=== PATIENT | female | born 1940 | race Caucasian/White ===

== ENCOUNTER → 2020-11-13 | Outpatient (CLI) | payer MEDICARE, OTHER | END | disposition home or self-care (01) | LOC: LAB 15:10 → LAB SHORT 15:10 | DX: L08.9 Local infection of the skin and subcutaneous tissue, unspecified (principal) | CPT/HCPCS: 88305 ==

== ENCOUNTER 2022-12-23 11:17 | Day surgery (SDC) | payer MEDICARE, OTHER ==
[~2022-12-23] VITALS: Ht 154.9 cm; Wt 59.1 kg
[2022-12-23] MEDS ORDERED: ASPI81CH (11:38)
[2022-12-23] MEDS ORDERED: BETA-CAROTENE (11:39)
[2022-12-23] MEDS ORDERED: Ginger250 MG (11:40)
[2022-12-23] MEDS ORDERED: LISI5 (11:40)
[2022-12-23] MEDS ORDERED: CALCITONIN-SAL3.7 M1 (11:40)
[2022-12-23] MEDS ORDERED: ERGO400 (11:40)
[2022-12-23] MEDS ORDERED: RESVERATIN PLU1 EACH (11:41)
[2022-12-23] MEDS ORDERED: TURMERIC ROOT5000 GM (11:41)
[2022-12-23] MEDS ORDERED: HAIR, SKIN AND1 EAC3 (11:41)
[2022-12-23 15:20] VITALS: BP 159/74
== END 2022-12-23 13:50 | disposition home or self-care (01) ==
LOC: ORSCSDS 11:17
PROVIDERS: Surgery
PROC: 0DB78ZX Excision of Stomach, Pylorus, Via Natural or Artificial Opening Endoscopic, Diagnostic (ICD-10-PCS; principal; 2022-12-23 12:45)
PROC: 0DB48ZX Excision of Esophagogastric Junction, Via Natural or Artificial Opening Endoscopic, Diagnostic (ICD-10-PCS; principal; 2022-12-23 12:45)
DX: K22.9 Disease of esophagus, unspecified (principal); K29.70 Gastritis, unspecified, without bleeding; K22.2 Esophageal obstruction; K44.9 Diaphragmatic hernia without obstruction or gangrene; I10 Essential (primary) hypertension; E21.3 Hyperparathyroidism, unspecified; Z79.899 Other long term (current) drug therapy; Z79.82 Long term (current) use of aspirin; Z86.718 Personal history of other venous thrombosis and embolism
CPT/HCPCS: 88305; 88342; J2704; J7120